=== PATIENT | female | born 1995 | race Caucasian/White ===

== ENCOUNTER 2016-07-12 18:35 | Emergency (ER) | payer MEDICAID ==
[2016-07-12 19:00] LABS: BASOPHIL % 0.3 % (0.0-0.4); Eosinophil % 1.3 % (0.00-5.0); Granulocytes % 61.4 % (36.0-66.0); Mean Cell Volume 88.7 fl (78-100); Mean Corpuscular Hemoglobin 29.2 pg (26-32); Mean Platelet Volume 10.3 fl (6-9.5); Platelet Count 305 K/mm3 (150-450); Red Blood Count 4.24 M/mm3 (4.1-5.4); Red Cell Distribution Width 13.4 % (11.5-14.0); White Blood Count 9.5 K/mm3 (4.0-10.5)
[2016-07-12 19:30] LABS: Collection Type CLEAN CATCH
[2016-07-12 19:31] LABS: Bacteria RARE /HPF (NEGATIVE); COMPLETE URINE MICROSCOPIC? YES; Epithelial Cells MODERATE /HPF (FEW); Ph 5.5 (5-6)
--- NOTE | 2016-07-12 19:32 | ERPHSYRPT ---
- History of Present Illness Time Seen by Provider: 07/12/16 19:29 Source: patient Exam Limitations: no limitations Patient Subjective Stated Complaint: abd cramping on friday. had a ' gush of clear fluid' in her underwear at 1630. denies abd cramping. denies diarrhea. deneis vag bleeding. last intercourse 2 weeks ago. denies pain with urination. last miscarriage in june 2015 Triage Nursing Assessment: see above. skin warm and dry. no discharge now. denies abd cramping, n/v/d Physician History: abd cramping on friday. had a 'gush of clear fluid' in her underwear at 1630. denies abd cramping. denies diarrhea. deneis vag bleeding. last intercourse 2 weeks ago. denies pain with urination. last miscarriage in june 2015, no fever, no chills, no abdominal pain, no nausea, Timing/Duration: today Pain Radiation: none Severity of Pain-Max: none Severity of Pain-Current: none Prior abdominal problems: none Sexual intercourse history: other (2 weeks ago) Allergies/Adverse Reactions: codeine Adverse Reaction (Verified 07/12/16 18:46) Home Medications: Vits W-Ca,Fe,FA(<1Mg) [] 1 each PO DAILY 07/12/16 [History] Hx Tetanus, Diphtheria Vaccination/Date Given: Yes Hx Influenza Vaccination/Date Given: No Hx Pneumococcal Vaccination/Date Given: No - Review of Systems Constitutional: No Fever, No Chills Eyes: No Symptoms Ears, Nose, & Throat: No Symptoms Respiratory: No Cough, No Dyspnea Cardiac: No Chest Pain, No Edema, No Syncope Abdominal/Gastrointestinal: No Abdominal Pain, No Nausea, No Vomiting, No Diarrhea Genitourinary Symptoms: , Vaginal Discharge, No Dysuria, No Frequency, No Hematuria, No Hesitancy, No Incontinence, No Menorrhagia, No Vaginal Bleeding , No Vaginal Itching Musculoskeletal: No Back Pain, No Neck Pain Skin: No Rash Neurological: No Dizziness, No Focal Weakness, No Sensory Changes Psychological: No Symptoms Endocrine: No Symptoms All Other Systems: Reviewed and Negative - Past Medical History Pertinent Past Medical History: Yes Neurological History: No Pertinent History ENT History: No Pertinent History Cardiac History: No Pertinent History Respiratory History: No Pertinent History Endocrine Medical History: No Pertinent History Musculoskeletal History: No Pertinent History GI Medical History: No Pertinent History Psycho-Social History: Anxiety, Depression Female Reproductive Disorders: No Pertinent History - Past Surgical History Past Surgical History: No Neuro Surgical History: No Pertinent History Cardiac: No Pertinent History Respiratory: No Pertinent History Gastrointestinal: No Pertinent History Genitourinary: No Pertinent History Musculoskeletal: No Pertinent History Female Surgical History: No Pertinent History - Social History Smoking Status: Never smoker Exposure to second hand smoke: No Drug Use: none Patient Lives Alone: No - Female History Hx Last Menstrual Period: 05/12 Hx Now: No Expected Date of Delivery: 03/05/17 - Nursing Vital Signs Nursing Vital Signs: Initial Vital Signs Temperature 98.8 F Temperature Source Oral Pulse Rate 100 Respiratory Rate 18 Blood Pressure [Right Arm] 134/69 Pain Intensity 0 - Physical Exam General Appearance: no apparent distress, alert Eye Exam: PERRL/EOMI, eyes nml inspection Ears, Nose, Throat Exam: normal ENT inspection, TMs normal, pharynx normal, moist mucous membranes Neck Exam: normal inspection, non-tender, supple, full range of motion Respiratory Exam: normal breath sounds, lungs clear, No respiratory distress Cardiovascular Exam: regular rate/rhythm, normal heart sounds, normal peripheral pulses Gastrointestinal/Abdomen Exam: soft, No tenderness, No mass Pelvic Exam: not done Back Exam: normal inspection, normal range of motion, No CVA tenderness, No vertebral tenderness Extremity Exam: normal inspection, normal range of motion, pelvis stable Neurologic Exam: alert, oriented x 3, cooperative, synchronizer II-XII nml as tested, normal mood/affect, sensation nml, No motor deficits Skin Exam: normal color, warm, dry Lymphatic Exam: No adenopathy SpO2: 100 Oxygen Delivery: Room Air - Course Nursing assessment & vital signs reviewed: Yes Ordered Tests: Active Orders 24 hr Category Date Time Status CBC W DIFF Stat Lab 07/12/16 19:01 Completed CMP Stat Lab 07/12/16 19:01 Completed HCG, Quantitative (Inhouse) Stat Lab 07/12/16 19:01 Completed UA W/ MICROSCOPIC Stat Lab 07/12/16 19:01 Completed Lab/Rad Data: Laboratory Result Diagrams 07/12/16 19:01 07/12/16 19:01 Laboratory Results 07/12/16 07/12/16 07/12/16 Range/Units 19:01 19:01 19:01 WBC 9.5 (4.0-10.5) K/mm3 RBC 4.24 (4.1-5.4) M/mm3 Hgb 12.4 (12.0-16.0) gm/dl Hct 37.6 (35-47) % MCV 88.7 (78-100) fl MCH 29.2 (26-32) pg MCHC 33.0 (32-36) g/dl RDW 13.4 (11.5-14.0) % Plt Count 305 (150-450) K/mm3 MPV 10.3 H (6-9.5) fl Gran % 61.4 (36.0-66.0) % Lymphocytes % 29.0 (24.0-44.0) % Monocytes % 8.0 (0.0-12.0) % Eosinophils % 1.3 (0.00-5.0) % Basophils % 0.3 (0.0-0.4) % Basophils # 0.03 (0-0.4) Sodium 141 (136-145) mEq/L Potassium 4.0 (3.5-5.1) mEq/L Chloride 103 (98-107) mEq/L Carbon Dioxide 23.6 (21-32) mEq/L Anion Gap 18.1 H (5-15) MEQ/L BUN 11 (9-20) mg/dL Creatinine 0.59 (0.55-1.30) mg/dl Estimated GFR > 60 ML/MIN Glucose 100 (70-110) MG/DL Calcium 9.2 (8.5-10.1) mg/dL Total Bilirubin 0.2 (0.2-1.0) mg/dL AST 11 L (15-37) U/L ALT 18 (12-78) U/L Alkaline Phosphatase 67 (46-116) U/L Serum Total Protein 7.9 (6.4-8.2) gm/dL Albumin 4.1 (3.4-5.0) g/dL Beta HCG, Quant 26627 H (0-6) IU/L Ur Collection Type CLEAN CATCH Urine Color YELLOW (YELLOW) Urine Appearance CLEAR (CLEAR) Urine pH 5.5 (5-6) Ur Specific [place] 1.015 (1.005-1.025) Urine Protein NEGATIVE (Negative) Urine Glucose (UA) NEGATIVE (NEGATIVE) mg/dL Urine Ketones NEGATIVE (NEGATIVE) Urine Nitrite NEGATIVE (NEGATIVE) Urine Bilirubin NEGATIVE (NEGATIVE) Urine Urobilinogen 0.2 (0-1) mg/dL Urine WBC (Auto) SMALL (NEGATIVE) Urine RBC (Auto) TRACE-INTACT (0-5) Luke/ul Urine Microscopic RBC 2-5 (0-2) /HPF Urine Microscopic WBC 2-5 (0-5) /HPF Ur Epithelial Cells MODERATE (FEW) /HPF Urine Bacteria RARE (NEGATIVE) /HPF Specimen Received 07/12/16 1900 - Progress Progress: improved Air Movement: good Blood Culture(s) Obtained: No Antibiotics given: No Counseled pt/family regarding: lab results, diagnosis, need for follow-up, smoking cessation - Departure Time of Disposition: 19:47 Departure Disposition: Home Clinical Impression: at early stage Condition: Stable Critical Care Time: No Referrals: NARESH LEMUS MD [Primary Care Provider] - Instructions: -- Discomforts and Remedies Additional Instructions: Please follow the instructions given to you. Please take your medication as prescribed if given. If symptoms recur or get worse, come back to the emergency room if you cannot reach your primary care physician, or call your primary care physician for an appointment. Again if your symptoms get worse, come back to the emergency room. Thanks for visiting emergency room, and let us take care of you.
[2016-07-12 19:42] LABS: ALBUMIN 4.1 g/dL (3.4-5.0); ALKALINE PHOSPHATASE 67 U/L (46-116); ANION GAP 18.1 MEQ/L (5-15); BILIRUBIN,TOTAL 0.2 mg/dL (0.2-1.0); BLOOD UREA NITROGEN 11 mg/dL (9-20); CHLORIDE 103 mEq/L (98-107); Carbon Dioxide 23.6 mEq/L (21-32); Glucose 100 MG/DL (70-110); HCG, Quantitative (Inhouse) 20335 IU/L (0-6); SGOT/AST 11 U/L (15-37); SGPT/ALT 18 U/L (12-78); SODIUM 141 mEq/L (136-145); Total Protein 7.9 gm/dL (6.4-8.2)
[2016-07-12 19:58] VITALS: BP 108/63; PULSE 88; O2SAT 99
== END 2016-07-12 20:00 | disposition home or self-care (01) ==
LOC: ED 18:35
DX: O09.219 Supervision of pregnancy with history of pre-term labor, unspecified trimester (principal)
CPT/HCPCS: 36415; 80053; 81000; 84702; 85025; 99284

== ENCOUNTER 2020-08-04 14:37 | Emergency (ER) | payer MEDICAID, OTHER ==
[2020-08-04] MEDS ORDERED: Sodium Chloride 0.9% 1000 ML 1,000 ML IV STA (15:02)
[2020-08-04 15:14] LABS: ALBUMIN 3.9 g/dL (3.5-5.0); ALKALINE PHOSPHATASE 82 U/L (38-126); ANION GAP 13.4 MEQ/L (5-15); BLOOD UREA NITROGEN 4 mg/dL (7-17); CHLORIDE 102 mmol/L (98-107); Calcium 9.1 mg/dL (8.4-10.2); Carbon Dioxide 23 mmol/L (22-30); Creatinine 1 0.44 mg/dL (0.52-1.04); EST GLOMERULAR FILTRATION RATE > 60.0 ML/MIN; Glucose 111 mg/dL (74-106); Potassium 3.3 mmol/L (3.5-5.1); SGOT/AST 17 U/L (14-36); SGPT/ALT 10 U/L (0-35); SODIUM 135 mmol/L (137-145); Total Protein 7.2 g/dL (6.3-8.2)
[2020-08-04 15:18] LABS: Amourphous Crystal FEW /HPF (NEGATIVE); Appearance SLIGHTLY CLOUDY (CLEAR); Bacteria FEW /HPF (NEGATIVE); Bilirubin NEGATIVE (NEGATIVE); Blood NEGATIVE Ery/ul (0-5); Epithelial Cells FEW /HPF (FEW); Glucose NEGATIVE (NEGATIVE); Ketones NEGATIVE (NEGATIVE); Leukocyte Esterase NEGATIVE (NEGATIVE); Nitrite NEGATIVE (NEGATIVE); Protein,Urine Dip 30 (Negative); Specific Gravity 1.011 (1.005-1.025); Urobilinogen NEGATIVE mg/dL (0-1); WBC 0-2 /HPF (0-5)
--- NOTE | 2020-08-04 15:18 | ERPHSYRPT ---
- History of Present Illness Time Seen by Provider: 08/04/20 14:58 Patient Subjective Stated Complaint: syncope Triage Nursing Assessment: pt to ED c/o syncopal epispode this afternoon. states she was sitting in her car and felt the aura she normally feels. reports hx syncopal episodes during previous . denies pain at this time, "I just feel a litte tired." A&Ox3. denies LOC. reports "I was sitting in the car and felt it coming so I looked at the clock. I lost my sight for a litte bit, ususally like 5 minutes but today it was 16 minutes." states this only happens when she is in sitting position. Physician History: Patient is a 25-year-old 3 para 2 Ab0 white female at 31 weeks gestation who presents after a syncopal episode while she was sitting in a car. She has had similar episodes of syncope in previous pregnancies this being her third epi sode seem that concerned her with this and was it seemed to last longer than most. She did complain of some brief period of shortness of breath from very tired and dizzy but feels back to normal at present. Witnessed: unwitnessed Prior Episodes: recent history Timing/Duration: resolved prior to arrival Precipitating Factors: unknown Context: sitting Loss of Consciousness: prolonged (minutes) Allergies/Adverse Reactions: codeine Adverse Reaction (Verified 08/04/20 14:41) Home Medications: Vits W-Ca,Fe,FA(<1Mg) [] 1 each PO DAILY 07/12/16 [History] Hx Tetanus, Diphtheria Vaccination/Date Given: Yes Hx Influenza Vaccination/Date Given: Yes Hx Pneumococcal Vaccination/Date Given: No Immunizations Up to Date: Yes Travel Risk - International Travel Have you traveled outside of the country in past 3 weeks: No - Coronavirus Screening Are you exhibiting any of the following symptoms?: No Close contact with a COVID-19 positive Pt in past 14-21 Days: No - Vaccine Status Have you recieved a Covid-19 vaccination: No - Past Medical History Pertinent Past Medical History: Yes Neurological History: No Pertinent History ENT History: No Pertinent History Cardiac History: No Pertinent History Respiratory History: No Pertinent History Endocrine Medical History: No Pertinent History Musculoskeletal History: No Pertinent History GI Medical History: No Pertinent History Psycho-Social History: Anxiety, Depression Female Reproductive Disorders: No Pertinent History - Past Surgical History Past Surgical History: Yes Neuro Surgical History: No Pertinent History Cardiac: No Pertinent History Respiratory: No Pertinent History Gastrointestinal: No Pertinent History Genitourinary: No Pertinent History Musculoskeletal: No Pertinent History Female Surgical History: Section Other Surgical History: C section - Social History Smoking Status: Never smoker Exposure to second hand smoke: No Drug Use: none Patient Lives Alone: No - Female History Hx Now: Yes Gestational Age: 31 weeks - Review of Systems Constitutional: No Fever, No Chills Eyes: No Symptoms Ears, Nose, & Throat: No Symptoms Respiratory: No Cough, No Dyspnea Cardiac: No Chest Pain, No Edema, No Syncope Abdominal/Gastrointestinal: No Abdominal Pain, No Nausea, No Vomiting, No Diarrhea Genitourinary Symptoms: No Dysuria Musculoskeletal: No Back Pain, No Neck Pain Skin: No Rash Neurological: Vertigo, No Dizziness, No Focal Weakness, No Sensory Changes Psychological: No Symptoms Endocrine: No Symptoms All Other Systems: Reviewed and Negative Physical Exam - Nursing Vital Signs Nursing Vital Signs: Initial Vital Signs Temperature 97.4 F 08/04/20 14:42 Pulse Rate 111 H 08/04/20 14:42 Respiratory Rate 18 08/04/20 14:42 Blood Pressure 142/78 08/04/20 14:42 O2 Sat by Pulse Oximetry 100 08/04/20 14:42 Pain Scale Pain Intensity 0 - Beverly Coma Scale Best Eye Response (Samantha): (4) open spontaneously Best Verbal Response (Samantha): (5) oriented Best Motor Response (Samantha): (6) obeys commands Beverly Total: 15 - Physical Exam Eye Exam: bilateral eye: PERRL, EOMI Ears, Nose, Throat Exam: normal ENT inspection, pharynx normal, moist mucous membranes Neck Exam: normal inspection, non-tender, supple, full range of motion Respiratory: normal breath sounds, lungs clear, No chest tenderness, No respiratory distress Cardiovascular: regular rate/rhythm, capillary refill <2 sec, No murmur, No pulse deficit Gastrointestinal: soft, normal bowel sounds, other (Gravid uterus heart tones positive positive movement) Pelvic Exam: deferred Rectal Exam: deferred Back Exam: normal inspection, normal range of motion, No CVA tenderness, No vertebral tenderness Extremity Exam: normal inspection, normal range of motion, pelvis stable, No tenderness Peripheral Pulses: carotid (R): 2+, carotid (L): 2+ Mental Status: alert, oriented x 3, cooperative mental hygienist Exam: normal speech, PERRL, No facial droop Coordination/Gait: normal finger to nose Motor/Sensory: no motor deficit, no sensory deficit, no pronator drift Skin Exam: normal color, warm, dry SpO2 Interpretation: normal SpO2: 100 O2 Delivery: Room Air - Course Nursing assessment & vital signs reviewed: Yes Ordered Tests: Active Orders 24 hr Category Date Time Status Industrial 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 Care 08/04/20 15:02 Active EKG-ER Only STAT Care 08/04/20 15:02 Active IV Insertion STAT Care 08/04/20 15:02 Active AMYLASE Stat Lab 08/04/20 15:03 Completed CBC W DIFF Stat Lab 08/04/20 15:02 Ordered CMP Stat Lab 08/04/20 15:02 Completed LIPASE Stat Lab 08/04/20 15:03 Completed Lactic Acid Stat Lab 08/04/20 15:03 Completed NT PRO BNP Stat Lab 08/04/20 15:03 Completed TROPONIN Q3H Lab 08/04/20 15:00 Completed TROPONIN Q3H Lab 08/04/20 18:15 Ordered TROPONIN Q3H Lab 08/04/20 21:15 Ordered TROPONIN Q3H Lab 08/05/20 00:15 Ordered TROPONIN Q3H Lab 08/05/20 03:15 Ordered UA W/RFX UR CULTURE Stat Lab 08/04/20 15:04 Completed Medication Summary Generic Name Dose Route Start Last Admin Trade Name Freq PRN Reason Stop Dose Admin Sodium Chloride 1,000 mls @ 999 mls/hr 08/04/20 15:02 08/04/20 15:23 Sodium Chloride 0.9% 1000 Ml IV 08/04/20 16:02 999 mls/hr .Q1H1M STA Administration Discontinued Medications Generic Name Dose Route Start Last Admin Trade Name Freq PRN Reason Stop Dose Admin Sodium Chloride Confirm 08/04/20 15:21 Sodium Chloride 0.9% 1000 Ml Administered 08/04/20 15:22 Dose 1,000 mls @ ud .ROUTE .STK-MED ONE Lab/Rad Data: Laboratory Result Diagrams 08/04/20 15:02 Laboratory Results 08/04/20 08/04/20 08/04/20 Range/Units 15:04 15:03 15:03 Sodium (137-145) mmol/L Potassium (3.5-5.1) mmol/L Chloride (98-107) mmol/L Carbon Dioxide (22-30) mmol/L Anion Gap (5-15) MEQ/L BUN (7-17) mg/dL Creatinine (0.52-1.04) mg/dL Estimated GFR ML/MIN Glucose (74-106) mg/dL Lactic Acid 1.7 (0.4-2.0) Calcium (8.4-10.2) mg/dL Total Bilirubin (0.2-1.3) mg/dL AST (14-36) U/L ALT (0-35) U/L Alkaline Phosphatase (38-126) U/L Troponin I (0.000-0.034) ng/mL NT-Pro-B Natriuret Pep 27.5 (0-450) pg/mL Serum Total Protein (6.3-8.2) g/dL Albumin (3.5-5.0) g/dL Amylase 42 (30-110) U/L Lipase 70 (23-300) U/L Urine Color YELLOW (YELLOW) Urine Appearance SLIGHTLY CLOUDY (CLEAR) Urine pH 8.0 (5-6) Ur Specific [place] 1.011 (1.005-1.025) Urine Protein 30 (Negative) Urine Ketones NEGATIVE (NEGATIVE) Urine Blood NEGATIVE (0-5) Luke/ul Urine Nitrite NEGATIVE (NEGATIVE) Urine Bilirubin NEGATIVE (NEGATIVE) Urine Urobilinogen NEGATIVE (0-1) mg/dL Ur Leukocyte Esterase NEGATIVE (NEGATIVE) Urine WBC (Auto) 0-2 (0-5) /HPF Urine RBC (Auto) NONE (0-2) /HPF U Epithel Cells (Auto) FEW (FEW) /HPF Urine Bacteria (Auto) FEW (NEGATIVE) /HPF Amorphous Crystals FEW (NEGATIVE) /HPF Urine Culture Reflexed NO (NO) Urine Glucose NEGATIVE (NEGATIVE) mg/dL 08/04/20 08/04/20 Range/Units 15:02 15:00 Sodium 135 L (137-145) mmol/L Potassium 3.3 L (3.5-5.1) mmol/L Chloride 102 (98-107) mmol/L Carbon Dioxide 23 (22-30) mmol/L Anion Gap 13.4 (5-15) MEQ/L BUN 4 L (7-17) mg/dL Creatinine 0.44 L (0.52-1.04) mg/dL Estimated GFR > 60.0 ML/MIN Glucose 111 H (74-106) mg/dL Lactic Acid (0.4-2.0) Calcium 9.1 (8.4-10.2) mg/dL Total Bilirubin 0.40 (0.2-1.3) mg/dL AST 17 (14-36) U/L ALT 10 (0-35) U/L Alkaline Phosphatase 82 (38-126) U/L Troponin I < 0.012 (0.000-0.034) ng/mL NT-Pro-B Natriuret Pep (0-450) pg/mL Serum Total Protein 7.2 (6.3-8.2) g/dL Albumin 3.9 (3.5-5.0) g/dL Amylase (30-110) U/L Lipase (23-300) U/L Urine Color (YELLOW) Urine Appearance (CLEAR) Urine pH (5-6) Ur Specific [place] (1.005-1.025) Urine Protein (Negative) Urine Ketones (NEGATIVE) Urine Blood (0-5) Luke/ul Urine Nitrite (NEGATIVE) Urine Bilirubin (NEGATIVE) Urine Urobilinogen (0-1) mg/dL Ur Leukocyte Esterase (NEGATIVE) Urine WBC (Auto) (0-5) /HPF Urine RBC (Auto) (0-2) /HPF U Epithel Cells (Auto) (FEW) /HPF Urine Bacteria (Auto) (NEGATIVE) /HPF Amorphous Crystals (NEGATIVE) /HPF Urine Culture Reflexed (NO) Urine Glucose (NEGATIVE) mg/dL - Progress Progress: improved - Departure Departure Disposition: Home Clinical Impression: at early stage, Syncope Condition: Stable Critical Care Time: No Referrals: NARESH LEMUS MD [Primary Care Provider] - Instructions: Syncope (Fainting) (DC)
[2020-08-04] MEDS ORDERED: Sodium Chloride 0.9% 1000 ML 1,000 ML ONE (15:21)
[2020-08-04 15:23] LABS: NT PRO BNP 27.5 pg/mL (0-450)
[2020-08-04 16:08] VITALS: BP 120/63; PULSE 110; O2SAT 99
[2020-08-04 16:44] LABS: Hematocrit 34.8 % (35-47); Mean Cell Volume 90.9 fl (78-100); Mean Corpuscular Hemoglobin 28.7 pg (26-32); Mean Corpuscular Hgb Concent. 31.6 g/dl (32-36); Mean Platelet Volume 11.7 fl (7.5-11.0); Platelet Count 216 K/mm3 (150-450); Red Blood Count 3.83 M/mm3 (4.1-5.4); Red Cell Distribution Width 12.9 % (11.5-14.0); White Blood Count 10.6 K/mm3 (4.0-10.5)
[2020-08-04 18:03] LABS: BAND 5 % (0.0-2.0); Lymphocytes 13 % (24-44); Monocyte 4 % (0.0-12.0); Neutrophils 78 % (36.0-66.0); Total Cells Counted 100
[2020-08-04 18:05] LABS: Platelet Estimate NORMAL (NORMAL)
== END 2020-08-04 16:14 | disposition home or self-care (01) ==
LOC: ED 14:37
DX: O26.893 Other specified pregnancy related conditions, third trimester (principal); Z3A.31 31 weeks gestation of pregnancy
CPT/HCPCS: 36000; 36415; 80053; 81001; 82150; 83605; 83690; 83880; 84484; 85025; 93005; 93041; 96360; 99284

== ENCOUNTER 2021-12-30 14:04 | Emergency (ER) | payer OTHER, BC ==
[2021-12-30] MEDS ORDERED: Sodium Chloride 0.9% 1000 ML 1,000 ML IV STA (14:09)
[2021-12-30 14:15] VITALS: O2SAT 100
[2021-12-30] MEDS ORDERED: Sodium Chloride 0.9% 1000 ML 1,000 ML ONE (14:23)
[2021-12-30 14:26] LABS: Absolute Neutrophil Ct (ANC) 5.58 x10^3/uL (1.4-6.9); Basophil (Absolute #) 0.03 x10^3/uL (0-0.4); Eosinophil % 0.8 % (0.00-5.0); Eosinophil (Absolute #) 0.06 x10^3/uL (0-0.5); Hematocrit 33.3 % (35-47); Hemoglobin 10.4 g/dL (12.0-16.0); Lymphocyte (Absolute #) 1.49 x10^3/uL (1.0-4.6); Lymphocytes % 19.1 % (24.0-44.0); Mean Cell Volume 81.2 fL (78-100); Mean Corpuscular Hemoglobin 25.4 pg (26-32); Mean Corpuscular Hgb Concent. 31.2 g/dL (32-36); Mean Platelet Volume 11.1 fL (7.5-11.0); Monocytes % 7.7 % (0.0-12.0); Neutrophil % 71.6 % (36.0-66.0); Platelet Count 260 x10^3/uL (150-450); Red Cell Distribution Width 15.3 % (11.5-14.0); White Blood Count 7.8 x10^3/uL (4.0-10.5)
[2021-12-30 14:32] LABS: Appearance CLOUDY (CLEAR); Glucose NEGATIVE (NEGATIVE)
[2021-12-30 14:33] LABS: Bilirubin SMALL (NEGATIVE); Dipstick done @ ? MAIN LAB; Ketones MODERATE-40 (NEGATIVE); Nitrite NEGATIVE (NEGATIVE); Protein,Urine Dip NEGATIVE (Negative); RBC NEGATIVE Ery/ul (0-5); Urobilinogen >=8.0 mg/dL (0-1)
[2021-12-30 14:38] LABS: Epithelial Cells FEW /HPF (FEW); Mucus MODERATE /HPF (NEGATIVE)
[2021-12-30 14:49] LABS: Urine Cultured Indicated? YES
[2021-12-30 14:50] LABS: ALBUMIN 4.2 g/dL (3.5-5.0); ALKALINE PHOSPHATASE 67 U/L (38-126); ANION GAP 9.8 MEQ/L (5-15); BLOOD UREA NITROGEN 3 mg/dL (7-17); CHLORIDE 104 mmol/L (98-107); Calcium 8.8 mg/dL (8.4-10.2); Carbon Dioxide 26 mmol/L (22-30); Creatinine 1 0.37 mg/dL (0.52-1.04); EST GLOMERULAR FILTRATION RATE > 60.0 ML/MIN; Glucose 85 mg/dL (74-106); Potassium 4.2 mmol/L (3.5-5.1); SGOT/AST 23 U/L (14-36); SGPT/ALT 26 U/L (0-35); SODIUM 135 mmol/L (137-145); Total Protein 7.4 g/dL (6.3-8.2)
[2021-12-30 15:24] LABS: INFLUENZA A NEGATIVE (NEGATIVE); INFLUENZA B NEGATIVE (NEGATIVE); RESPIRATORY SYNCTIAL VIRUS NEGATIVE (Negative); SARS-CoV-2 Xpert Express NEGATIVE (NEGATIVE)
[2021-12-30] MEDS ORDERED: ROCEPHIN 2 Gm-D5w 50ML BAG** 2 G/50 ML IVPB IV STA (16:03)
[2021-12-30 16:04] VITALS: BP 96/66
[2021-12-30] MEDS ORDERED: ROCEPHIN 2 Gm-D5w 50ML BAG** 2 G/50 ML IVPB IV ONE (16:21)
[2021-12-30 16:28] VITALS: PULSE 90
--- NOTE | 2021-12-30 16:28 | ERPHSYRPT ---
- History of Present Illness Time Seen by Provider: 12/30/21 14:07 Source: patient Exam Limitations: no limitations Patient Subjective Stated Complaint: C/O bouts of dizziness and "just not feeling right" since yesterday. Patient states she is pregnany, just saw her OB MD on (Dr. Lemus). Patient states she was fine at that time. Triage Nursing Assessment: Patient ambulated back to ED without difficulties or SOB. Patient is alert and oriented and answering questions appropriately. KEYSHAWN PRADO. Physician History: 26 years old 5 para 3 at 17 weeks gestation presented in the ER with chief complaint of feeling dizzy lightheaded off and on since yesterday with pelvic cramping at times as well. Patient reports she gets dizzy and lightheaded with standing and earlier she had a brief near syncopal episode. She is also having mild headache and generalized feeling of unwellness. Denies any sick contact. No chest pain palpitations or shortness of breath. No cough fever or chills reported. Feels weak fatigued and tired. Gets worse with activity. Better with resting. Denies any vaginal bleeding or discharge. Patient reports yesterday she was having cramping which lasted for good 30 minutes and improved. Does not report having any cramping today. Timing/Duration: yesterday, intermittent, gradual onset Quality: cramping Onset Location: pelvic pain Pain Radiation: none Severity of Pain-Max: mild Severity of Pain-Current: none Prior abdominal problems: none Sexual intercourse history: non-contributory Modifying Factors: Improves With: nothing Associated Symptoms: , No abdominal pain, No fever, No polyuria, No lower back pain, No vaginal discharge, No vaginal fluid leakage Allergies/Adverse Reactions: codeine Adverse Reaction (Verified 12/30/21 14:05) Home Medications: Vits W-Ca,Fe,FA(<1Mg) [] 1 each PO DAILY 07/12/16 [History] Sertraline HCl 50 mg [Zoloft 50 mg Tablet] 1 tab PO DAILY 12/30/21 [History] Hx Tetanus, Diphtheria Vaccination/Date Given: Yes Hx Influenza Vaccination/Date Given: No Hx Pneumococcal Vaccination/Date Given: No Travel Risk - International Travel Have you traveled outside of the country in past 3 weeks: No - Coronavirus Screening Are you exhibiting any of the following symptoms?: Yes Symptoms: Shortness of Breath, Vomiting/Diarrhea, Headaches/Body Aches/Fatigue Close contact with a COVID-19 positive Pt in past 14-21 Days: No - Vaccine Status Have you recieved a Covid-19 vaccination: No - Review of Systems Constitutional: Fatigue, Weakness Eyes: No Symptoms Ears, Nose, & Throat: No Symptoms Respiratory: No Symptoms Cardiac: No Symptoms Abdominal/Gastrointestinal: No Symptoms Genitourinary Symptoms: No Symptoms Musculoskeletal: No Symptoms Skin: No Symptoms Neurological: Dizziness, Headache Psychological: No Symptoms Endocrine: No Symptoms Hematologic/Lymphatic: No Symptoms Immunological/Allergic: No Symptoms - Past Medical History Pertinent Past Medical History: Yes Neurological History: No Pertinent History ENT History: No Pertinent History Cardiac History: No Pertinent History Respiratory History: No Pertinent History Endocrine Medical History: No Pertinent History Musculoskeletal History: No Pertinent History GI Medical History: No Pertinent History History: No Pertinent History Psycho-Social History: Anxiety, Depression Female Reproductive Disorders: No Pertinent History - Past Surgical History Past Surgical History: Yes Neuro Surgical History: No Pertinent History Cardiac: No Pertinent History Respiratory: No Pertinent History Gastrointestinal: No Pertinent History Genitourinary: No Pertinent History Musculoskeletal: No Pertinent History Female Surgical History: Section Other Surgical History: C section - Social History Smoking Status: Never smoker Exposure to second hand smoke: No Drug Use: none Patient Lives Alone: No - Female History Hx Last Menstrual Period: August 28, 2021 Hx Now: Yes Expected Date of Delivery: 06/04/22 Gestational Age: 17 weeks - Nursing Vital Signs Nursing Vital Signs: Initial Vital Signs Temperature 98.7 F 12/30/21 14:07 Pulse Rate 101 H 12/30/21 14:07 Respiratory Rate 18 12/30/21 14:07 Blood Pressure 115/79 12/30/21 14:07 O2 Sat by Pulse Oximetry 100 12/30/21 14:07 Pain Scale Pain Intensity 0 - Physical Exam General Appearance: no apparent distress, alert Eye Exam: PERRL/EOMI Ears, Nose, Throat Exam: normal ENT inspection, TMs normal, pharynx normal, moist mucous membranes Neck Exam: normal inspection, non-tender, supple, full range of motion, Kernig's Respiratory Exam: normal breath sounds, lungs clear Cardiovascular Exam: regular rate/rhythm, normal heart sounds Gastrointestinal/Abdomen Exam: soft, normal bowel sounds, No tenderness Back Exam: normal inspection, normal range of motion, No CVA tenderness Extremity Exam: normal inspection, normal range of motion, pelvis stable Neurologic Exam: alert, oriented x 3, cooperative, 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-XII nml as tested, normal mood/affect, nml cerebellar function, nml station & gait, sensation nml, No motor deficits Skin Exam: normal color SpO2 Interpretation: normal SpO2: 100 O2 Delivery: Room Air - Course EKG Interpreted by Me: RATE ([id number]), Sinus Rhythm, NORMAL AXIS, NORMAL INTERVALS, Non-specific ST Changes Ordered Tests: Active Orders 24 hr Category Date Time Status EKG-ER Only STAT Care 12/30/21 14:39 Completed IV Insertion STAT Care 12/30/21 14:09 Completed Orthostatic Vital Signs STAT Care 12/30/21 14:10 Completed CBC W DIFF Stat Lab 12/30/21 14:20 Completed CMP Stat Lab 12/30/21 14:20 Completed CULTURE,URINE Stat Lab 12/30/21 14:15 Received TROPONIN Q4H Lab 12/30/21 14:45 Completed UA W/RFX CULTURE Stat Lab 12/30/21 14:15 Completed Medication Summary Discontinued Medications Generic Name Dose Route Start Last Admin Trade Name Freq PRN Reason Stop Dose Admin Sodium Chloride 1,000 mls @ 999 mls/hr 12/30/21 14:09 12/30/21 15:37 Sodium Chloride 0.9% 1000 Ml IV 12/30/21 15:09 Infused .Q1H1M STA Infusion Sodium Chloride Confirm 12/30/21 14:23 Sodium Chloride 0.9% 1000 Ml Administered 12/30/21 14:24 Dose 1,000 mls @ ud .ROUTE .STK-MED ONE Ceftriaxone Sodium/Dextrose 2 g in 50 mls @ 100 mls/hr 12/30/21 16:03 12/30/21 16:54 Rocephin 2 Gm-D5w 50ml Bag IV 12/30/21 16:32 Infused STAT STA Infusion Ceftriaxone Sodium/Dextrose Confirm 12/30/21 16:21 Rocephin 2 Gm-D5w 50ml Bag Administered 12/30/21 16:22 Dose 2 g in 50 mls @ ud IV .STK-MED ONE Lab/Rad Data: Laboratory Result Diagrams 12/30/21 14:20 12/30/21 14:20 Laboratory Results 12/30/21 12/30/21 12/30/21 Range/Units 15:00 14:45 14:20 WBC (4.0-10.5) x10^3/uL RBC (4.1-5.4) x10^6/uL Hgb (12.0-16.0) g/dL Hct (35-47) % MCV (78-100) fL MCH (26-32) pg MCHC (32-36) g/dL RDW (11.5-14.0) % Plt Count (150-450) x10^3/uL MPV (7.5-11.0) fL Gran % (36.0-66.0) % Immature Gran % (Auto) (0.00-0.4) % Nucleat RBC Rel Count (0.00-0.1) % Eos # (Auto) (0-0.5) x10^3/uL Immature Gran # (Auto) (0.00-0.03) x10^3u/L Absolute Lymphs (auto) (1.0-4.6) x10^3/uL Absolute Monos (auto) (0.0-1.3) x10^3/uL Absolute Nucleated RBC (0.00-0.01) x10^3u/L Lymphocytes % (24.0-44.0) % Monocytes % (0.0-12.0) % Eosinophils % (0.00-5.0) % Basophils % (0.0-0.4) % Absolute Granulocytes (1.4-6.9) x10^3/uL Basophils # (0-0.4) x10^3/uL Sodium 135 L (137-145) mmol/L Potassium 4.2 (3.5-5.1) mmol/L Chloride 104 (98-107) mmol/L Carbon Dioxide 26 (22-30) mmol/L Anion Gap 9.8 (5-15) MEQ/L BUN 3 L (7-17) mg/dL Creatinine 0.37 L (0.52-1.04) mg/dL Estimated GFR > 60.0 ML/MIN Glucose 85 (74-106) mg/dL Calcium 8.8 (8.4-10.2) mg/dL Total Bilirubin 0.40 (0.2-1.3) mg/dL AST 23 (14-36) U/L ALT 26 (0-35) U/L Alkaline Phosphatase 67 (38-126) U/L Troponin I < 0.012 (0.000-0.034) ng/mL Serum Total Protein 7.4 (6.3-8.2) g/dL Albumin 4.2 (3.5-5.0) g/dL Urinalys Dipstick Clnc Urine Color (YELLOW) Urine Appearance (CLEAR) Urine pH (5-6) Ur Specific [place] (1.005-1.025) POC Urine Protein Conf (Negative) Urine Ketones (NEGATIVE) Urine Nitrite (NEGATIVE) Urine Bilirubin (NEGATIVE) Urine Urobilinogen (0-1) mg/dL Urine Leukocytes (NEGATIVE) Urine WBC (Auto) (0-5) /HPF Urine RBC (Auto) (0-2) /HPF U Epithel Cells (Auto) (FEW) /HPF Urine Bacteria (Auto) (NEGATIVE) /HPF Urine RBC (0-5) Luke/ul Urine Mucus (Auto) (NEGATIVE) /HPF Ur Culture Indicated? Urine Glucose (NEGATIVE) mg/dL Influenza Type A Ag NEGATIVE (NEGATIVE) Influenza Type B Ag NEGATIVE (NEGATIVE) RSV (PCR) NEGATIVE (Negative) SARS-CoV-2 (PCR) NEGATIVE (NEGATIVE) 12/30/21 12/30/21 Range/Units 14:20 14:15 WBC 7.8 (4.0-10.5) x10^3/uL RBC 4.10 (4.1-5.4) x10^6/uL Hgb 10.4 L (12.0-16.0) g/dL Hct 33.3 L (35-47) % MCV 81.2 (78-100) fL MCH 25.4 L (26-32) pg MCHC 31.2 L (32-36) g/dL RDW 15.3 H (11.5-14.0) % Plt Count 260 (150-450) x10^3/uL MPV 11.1 H (7.5-11.0) fL Gran % 71.6 H (36.0-66.0) % Immature Gran % (Auto) 0.4 (0.00-0.4) % Nucleat RBC Rel Count 0.0 (0.00-0.1) % Eos # (Auto) 0.06 (0-0.5) x10^3/uL Immature Gran # (Auto) 0.03 (0.00-0.03) x10^3u/L Absolute Lymphs (auto) 1.49 (1.0-4.6) x10^3/uL Absolute Monos (auto) 0.60 (0.0-1.3) x10^3/uL Absolute Nucleated RBC 0.00 (0.00-0.01) x10^3u/L Lymphocytes % 19.1 L (24.0-44.0) % Monocytes % 7.7 (0.0-12.0) % Eosinophils % 0.8 (0.00-5.0) % Basophils % 0.4 (0.0-0.4) % Absolute Granulocytes 5.58 (1.4-6.9) x10^3/uL Basophils # 0.03 (0-0.4) x10^3/uL Sodium (137-145) mmol/L Potassium (3.5-5.1) mmol/L Chloride (98-107) mmol/L Carbon Dioxide (22-30) mmol/L Anion Gap (5-15) MEQ/L BUN (7-17) mg/dL Creatinine (0.52-1.04) mg/dL Estimated GFR ML/MIN Glucose (74-106) mg/dL Calcium (8.4-10.2) mg/dL Total Bilirubin (0.2-1.3) mg/dL AST (14-36) U/L ALT (0-35) U/L Alkaline Phosphatase (38-126) U/L Troponin I (0.000-0.034) ng/mL Serum Total Protein (6.3-8.2) g/dL Albumin (3.5-5.0) g/dL Urinalys Dipstick Clnc MAIN LAB Urine Color YELLOW (YELLOW) Urine Appearance CLOUDY (CLEAR) Urine pH 7.0 (5-6) Ur Specific [place] 1.020 (1.005-1.025) POC Urine Protein Conf NEGATIVE (Negative) Urine Ketones MODERATE-40 (NEGATIVE) Urine Nitrite NEGATIVE (NEGATIVE) Urine Bilirubin SMALL (NEGATIVE) Urine Urobilinogen >=8.0 (0-1) mg/dL Urine Leukocytes LARGE (NEGATIVE) Urine WBC (Auto) 16-25 (0-5) /HPF Urine RBC (Auto) 3-5 (0-2) /HPF U Epithel Cells (Auto) FEW (FEW) /HPF Urine Bacteria (Auto) NONE (NEGATIVE) /HPF Urine RBC NEGATIVE (0-5) Luke/ul Urine Mucus (Auto) MODERATE (NEGATIVE) /HPF Ur Culture Indicated? YES Urine Glucose NEGATIVE (NEGATIVE) mg/dL Influenza Type A Ag (NEGATIVE) Influenza Type B Ag (NEGATIVE) RSV (PCR) (Negative) SARS-CoV-2 (PCR) (NEGATIVE) - Progress Progress: improved Air Movement: good Progress Note: 12/30/21 16:25 She is given fluid bolus and feeling much better on reevaluation. She has negative orthostatics, nonfocal neuro exam throughout stay in the ER. EKG normal sinus rhythm with no arrhythmia/ischemic changes and negative troponin. Baseline work-up grossly unremarkable except for some element of UTI and given a dose of Rocephin in here and will continue with Keflex to go home. She also seems little dehydrated and better after fluids. I have OB come down and monitor her for any contractions and was negative for 30 minutes. She has a heart tone of 140s. recommended increase hydration and outpatient OB follow-up early next week. Discussed signs symptoms of worsening needing return to ER which she seems understanding. Stable for discharge Blood Culture(s) Obtained: No Antibiotics given: Yes Counseled pt/family regarding: lab results, diagnosis, need for follow-up - Departure Departure Disposition: Home Clinical Impression: UTI in , antepartum, Cramping affecting , antepartum, Dehydration during Condition: Stable Critical Care Time: No Referrals: NARESH LEMUS MD [Primary Care Provider] - Follow up/PCP as directed (Tomorrow for appointment for reevaluation) Instructions: Taking in Enough Fluids While You Are , Urinary Tract I nfections in Additional Instructions: Drink plenty of fluids. Take Tylenol as needed. Pelvic rest. Avoid exertional activities. Follow-up with your OB for reevaluation early next week. Return to ER for worsening generalized weakness, lightheadedness, pelvic cramping or if having vaginal bleeding discharge etc. Prescriptions: Cephalexin Mh 500 mg [Keflex 500 mg] 500 mg PO TID #21 cap
== END 2021-12-30 17:34 | disposition home or self-care (01) ==
LOC: ED 14:04
DX: O23.42 Unspecified infection of urinary tract in pregnancy, second trimester (principal); N39.0 Urinary tract infection, site not specified; Z3A.17 17 weeks gestation of pregnancy; O26.892 Other specified pregnancy related conditions, second trimester; R10.9 Unspecified abdominal pain; E86.0 Dehydration; R42 Dizziness and giddiness; Z79.899 Other long term (current) drug therapy; Z28.310 Unvaccinated for COVID-19
CPT/HCPCS: 0241U; 36000; 36415; 80053; 81015; 84484; 85025; 87086; 93005; 96360; 99284; 96365; J0696

== ENCOUNTER 2022-03-20 01:34 | Emergency (ER) | payer BC, OTHER ==
--- NOTE | 2022-03-20 02:11 | ERPHSYRPT ---
- History of Present Illness Time Seen by Provider: 03/20/22 02:09 Source: patient Exam Limitations: no limitations Physician History: 26-year-old female M1 currently 29 weeks presents to our ED for evaluation of dehydration vomiting nausea and diarrhea. symptoms have been ongoing for 2 days. Patient states she cannot hold anything down and she feels very thirsty. No fever. No active pain. Symptoms are mild to moderate in intensity. No specific worsening improving factors. Patient that she is otherwise healthy. She is got no significant past medical history. Patient voices no other complaints or concerns at this time. Portions of this note were created with voice recognition technology. There may be grammatical, spelling, punctuation or sound alike errors Timing/Duration: today Severity: moderate Modifying Factors: Improves With: nothing Associated Symptoms: denies symptoms Allergies/Adverse Reactions: codeine Adverse Reaction (Verified 12/30/21 14:05) Home Medications: Vits W-Ca,Fe,FA(<1Mg) [] 1 each PO DAILY 07/12/16 [History] Hx Tetanus, Diphtheria Vaccination/Date Given: Yes Hx Influenza Vaccination/Date Given: No Hx Pneumococcal Vaccination/Date Given: No Travel Risk - Vaccine Status Have you recieved a Covid-19 vaccination: No - Review of Systems Constitutional: No Symptoms, No Fever, No Chills Eyes: No Symptoms Ears, Nose, & Throat: No Symptoms Respiratory: No Symptoms, No Cough, No Dyspnea Cardiac: No Symptoms, No Chest Pain, No Edema, No Syncope Abdominal/Gastrointestinal: No Symptoms, No Abdominal Pain, No Nausea, No Vomiting, No Diarrhea Genitourinary Symptoms: No Symptoms, No Dysuria Musculoskeletal: No Symptoms, No Back Pain, No Neck Pain Skin: No Symptoms, No Rash Neurological: No Symptoms, No Dizziness, No Focal Weakness, No Sensory Changes Psychological: No Symptoms Endocrine: No Symptoms Hematologic/Lymphatic: No Symptoms Immunological/Allergic: No Symptoms All Other Systems: Reviewed and Negative - Past Medical History Pertinent Past Medical History: Yes Neurological History: No Pertinent History ENT History: No Pertinent History Cardiac History: No Pertinent History Respiratory History: No Pertinent History Endocrine Medical History: No Pertinent History Musculoskeletal History: No Pertinent History GI Medical History: No Pertinent History History: No Pertinent History Psycho-Social History: Anxiety, Depression Female Reproductive Disorders: No Pertinent History - Past Surgical History Past Surgical History: Yes Neuro Surgical History: No Pertinent History Cardiac: No Pertinent History Respiratory: No Pertinent History Gastrointestinal: No Pertinent History Genitourinary: No Pertinent History Musculoskeletal: No Pertinent History Female Surgical History: Section Other Surgical History: C section - Social History Smoking Status: Never smoker Exposure to second hand smoke: No Drug Use: none Patient Lives Alone: No - Nursing Vital Signs Nursing Vital Signs: Initial Vital Signs Temperature 97.6 F 03/20/22 01:57 Pulse Rate 104 H 03/20/22 01:57 Respiratory Rate 18 03/20/22 01:57 Blood Pressure 136/80 03/20/22 01:57 O2 Sat by Pulse Oximetry 98 03/20/22 01:57 Pain Scale Pain Intensity 4 - Physical Exam General Appearance: no apparent distress, alert Eye Exam: PERRL/EOMI, eyes nml inspection Ears, Nose, Throat Exam: normal ENT inspection, TMs normal, pharynx normal, moist mucous membranes Neck Exam: normal inspection, non-tender, supple, full range of motion Respiratory Exam: normal breath sounds, lungs clear, airway intact, No respi ratory distress Cardiovascular Exam: regular rate/rhythm, normal heart sounds, normal peripheral pulses Gastrointestinal/Abdomen Exam: soft, normal bowel sounds, other (Mild diffuse abdominal pain which patient attributes to recurrent vomiting. No focal pain or tenderness), No tenderness, No mass Back Exam: normal inspection, normal range of motion, No CVA tenderness, No vertebral tenderness Extremity Exam: normal inspection, normal range of motion, pelvis stable Neurologic Exam: alert, oriented x 3, cooperative, normal mood/affect, nml cerebellar function, nml station & gait, sensation nml, No motor deficits Skin Exam: normal color, warm, dry, No rash Lymphatic Exam: No adenopathy SpO2 Interpretation: normal SpO2: 98 O2 Delivery: Room Air - Course Nursing assessment & vital signs reviewed: Yes Ordered Tests: Active Orders 24 hr Category Date Time Status IV Insertion STAT Care 03/20/22 02:29 Active CBC W DIFF Stat Lab 03/20/22 02:40 Completed CMP Stat Lab 03/20/22 02:40 Completed LIPASE Stat Lab 03/20/22 02:40 Completed UA W/RFX CULTURE Stat Lab 03/20/22 02:46 Completed Medication Summary Discontinued Medications Generic Name Dose Route Start Last Admin Trade Name Freq PRN Reason Stop Dose Admin Acetaminophen 975 mg 03/20/22 02:30 03/20/22 02:36 Acetaminophen 325 Mg Tablet PO 03/20/22 02:31 975 mg STAT ONE Administration Acetaminophen Confirm 03/20/22 02:36 Acetaminophen 325 Mg Tablet Administered 03/20/22 02:37 Dose 975 mg .ROUTE .STK-MED ONE Sodium Chloride 1,000 mls @ 999 mls/hr 03/20/22 02:29 03/20/22 02:37 Sodium Chloride 0.9% 1000 Ml IV 03/20/22 03:29 999 mls/hr .Q1H1M STA Administration Sodium Chloride Confirm 03/20/22 02:36 Sodium Chloride 0.9% 1000 Ml Administered 03/20/22 02:37 Dose 1,000 mls @ ud .ROUTE .STK-MED ONE Ondansetron HCl 4 mg 03/20/22 02:30 03/20/22 02:36 Ondansetron Hcl 4 Mg/2 Ml Vial IV 03/20/22 02:31 4 mg STAT ONE Administration Ondansetron HCl Confirm 03/20/22 02:35 Ondansetron Hcl 4 Mg/2 Ml Vial Administered 03/20/22 02:36 Dose 4 mg .ROUTE .STK-MED ONE Lab/Rad Data: Laboratory Result Diagrams 03/20/22 02:40 03/20/22 02:40 Laboratory Results 03/20/22 03/20/22 03/20/22 Range/Units 02:46 02:40 02:40 WBC (4.0-10.5) x10^3/uL RBC (4.1-5.4) x10^6/uL Hgb (12.0-16.0) g/dL Hct (35-47) % MCV (78-100) fL MCH (26-32) pg MCHC (32-36) g/dL RDW (11.5-14.0) % Plt Count (150-450) x10^3/uL MPV (7.5-11.0) fL Gran % (36.0-66.0) % Immature Gran % (Auto) (0.00-0.4) % Nucleat RBC Rel Count (0.00-0.1) % Eos # (Auto) (0-0.5) x10^3/uL Immature Gran # (Auto) (0.00-0.03) x10^3u/L Absolute Lymphs (auto) (1.0-4.6) x10^3/uL Absolute Monos (auto) (0.0-1.3) x10^3/uL Absolute Nucleated RBC (0.00-0.01) x10^3u/L Lymphocytes % (24.0-44.0) % Monocytes % (0.0-12.0) % Eosinophils % (0.00-5.0) % Basophils % (0.0-0.4) % Absolute Granulocytes (1.4-6.9) x10^3/uL Basophils # (0-0.4) x10^3/uL Sodium 135 L (137-145) mmol/L Potassium 3.4 L (3.5-5.1) mmol/L Chloride 105 (98-107) mmol/L Carbon Dioxide 19 L (22-30) mmol/L Anion Gap 14.7 (5-15) MEQ/L BUN 5 L (7-17) mg/dL Creatinine 0.38 L (0.52-1.04) mg/dL Estimated GFR > 60.0 ML/MIN Glucose 108 H (74-106) mg/dL Calcium 8.5 (8.4-10.2) mg/dL Total Bilirubin 0.70 (0.2-1.3) mg/dL AST 15 (14-36) U/L ALT 12 (0-35) U/L Alkaline Phosphatase 115 (38-126) U/L Serum Total Protein 7.7 (6.3-8.2) g/dL Albumin 3.9 (3.5-5.0) g/dL Lipase 35 (23-300) U/L Urinalys Dipstick Clnc MAIN LAB Urine Color YELLOW (YELLOW) Urine Appearance CLEAR (CLEAR) Urine pH 5.5 (5-6) Ur Specific [place] >=1.030 A (1.005-1.025) POC Urine Protein Conf 30 A (Negative) Urine Ketones >=160 A (NEGATIVE) Urine Nitrite NEGATIVE (NEGATIVE) Urine Bilirubin SMALL A (NEGATIVE) Urine Urobilinogen 0.2 (0-1) mg/dL Urine Leukocytes NEGATIVE (NEGATIVE) Urine WBC (Auto) 0-2 (0-5) /HPF Urine RBC (Auto) NONE (0-2) /HPF U Epithel Cells (Auto) RARE (FEW) /HPF Urine Bacteria (Auto) RARE (NEGATIVE) /HPF Urine RBC NEGATIVE (0-5) Luke/ul Urine Mucus (Auto) SLIGHT A (NEGATIVE) /HPF Ur Culture Indicated? NO Urine Glucose NEGATIVE (NEGATIVE) mg/dL Influenza Type A Ag NEGATIVE (NEGATIVE) Influenza Type B Ag NEGATIVE (NEGATIVE) RSV (PCR) NEGATIVE (Negative) SARS-CoV-2 (PCR) NEGATIVE (NEGATIVE) 03/20/22 Range/Units 02:40 WBC 11.0 H (4.0-10.5) x10^3/uL RBC 4.17 (4.1-5.4) x10^6/uL Hgb 10.9 L (12.0-16.0) g/dL Hct 34.7 L (35-47) % MCV 83.2 (78-100) fL MCH 26.1 (26-32) pg MCHC 31.4 L (32-36) g/dL RDW 14.5 H (11.5-14.0) % Plt Count 231 (150-450) x10^3/uL MPV 11.5 H (7.5-11.0) fL Gran % 89.3 H (36.0-66.0) % Immature Gran % (Auto) 1.1 H (0.00-0.4) % Nucleat RBC Rel Count 0.0 (0.00-0.1) % Eos # (Auto) 0.02 (0-0.5) x10^3/uL Immature Gran # (Auto) 0.12 H (0.00-0.03) x10^3u/L Absolute Lymphs (auto) 0.62 L (1.0-4.6) x10^3/uL Absolute Monos (auto) 0.38 (0.0-1.3) x10^3/uL Absolute Nucleated RBC 0.00 (0.00-0.01) x10^3u/L Lymphocytes % 5.6 L (24.0-44.0) % Monocytes % 3.5 (0.0-12.0) % Eosinophils % 0.2 (0.00-5.0) % Basophils % 0.3 (0.0-0.4) % Absolute Granulocytes 9.81 H (1.4-6.9) x10^3/uL Basophils # 0.03 (0-0.4) x10^3/uL Sodium (137-145) mmol/L Potassium (3.5-5.1) mmol/L Chloride (98-107) mmol/L Carbon Dioxide (22-30) mmol/L Anion Gap (5-15) MEQ/L BUN (7-17) mg/dL Creatinine (0.52-1.04) mg/dL Estimated GFR ML/MIN Glucose (74-106) mg/dL Calcium (8.4-10.2) mg/dL Total Bilirubin (0.2-1.3) mg/dL AST (14-36) U/L ALT (0-35) U/L Alkaline Phosphatase (38-126) U/L Serum Total Protein (6.3-8.2) g/dL Albumin (3.5-5.0) g/dL Lipase (23-300) U/L Urinalys Dipstick Clnc Urine Color (YELLOW) Urine Appearance (CLEAR) Urine pH (5-6) Ur Specific [place] (1.005-1.025) POC Urine Protein Conf (Negative) Urine Ketones (NEGATIVE) Urine Nitrite (NEGATIVE) Urine Bilirubin (NEGATIVE) Urine Urobilinogen (0-1) mg/dL Urine Leukocytes (NEGATIVE) Urine WBC (Auto) (0-5) /HPF Urine RBC (Auto) (0-2) /HPF U Epithel Cells (Auto) (FEW) /HPF Urine Bacteria (Auto) (NEGATIVE) /HPF Urine RBC (0-5) Luke/ul Urine Mucus (Auto) (NEGATIVE) /HPF Ur Culture Indicated? Urine Glucose (NEGATIVE) mg/dL Influenza Type A Ag (NEGATIVE) Influenza Type B Ag (NEGATIVE) RSV (PCR) (Negative) SARS-CoV-2 (PCR) (NEGATIVE) - Progress Progress: improved Progress Note: AC[facility] FILLER requested to come to our ED room 7 for toco monitoring 03/20/22 02:36 Patient reassessed. Vitals normal. Patient tolerating p.o. Patient feels much better. [place] monitoring within normal limits. COVID influenza RSV negative. UA negative for UTI. No indication for further work-up. Patient resting comfortably. Will discharge home. Patient agrees to follow-up with primary care doctor within 48 hours for evaluation. Portions of this note were created with voice recognition technology. There may be grammatical, spelling, punctuation or sound alike errors 03/20/22 03:35 Potassium replaced orally 03/20/22 03:38 Counseled pt/family regarding: lab results, diagnosis, need for follow-up - Departure Departure Disposition: Home Clinical Impression: Nausea/vomiting in , Diarrhea, Dehydration Condition: Stable Critical Care Time: No Referrals: NARESH LEMUS MD [Primary Care Provider] - Follow up/PCP as directed Additional Instructions: Discharge/Care Plan BLAKE MORENO was seen on 03/20/22 in the Emergency Room. The patient was counseled regarding Diagnosis,Lab results, Imaging studies, need for follow up and when to return to the Emergency Room. Prescriptions given: Discharge Note I have spoken with the patient and/or caregivers. I have explained the patient's condition, diagnosis and treatment plan based on the information available to me at this time. I have answered the patient's and/or caregiver's questions and addressed any concerns. The patient and/or caregivers have as good understanding of the patient's diagnosis, condition and treatment plan as can be expected at this point. The vital signs have been stable. The patient's condition is stable and appropriate for discharge from the emergency department. The patient will pursue further outpatient evaluation with the primary care miranda waggoner or other designated or consulting physician as outlined in the discharge instructions. The patient and/or caregivers are agreeable to this plan of care and follow-up instructions have been explained in detail. The patient and/or caregivers have received these instruction. The patient/and or caregivers are aware that any significant change in condition or worsening of symptoms should prompt an immediate return to this or the closest emergency department or call 911. Prescriptions: Ondansetron ODT 4 MG [Zofran Odt 4 mg] 4 mg PO Q6H PRN PRN #10 tablet PRN Reason: Vomiting
[2022-03-20] MEDS ORDERED: Sodium Chloride 0.9% 1000 ML 1,000 ML IV STA (02:29)
[2022-03-20] MEDS ORDERED: TYLENOL 325 MG PO ONE (02:30)
[2022-03-20] MEDS ORDERED: Zofran 4 MG/2 ML VIAL IV ONE (02:30)
[2022-03-20] MEDS ORDERED: Zofran 4 MG/2 ML VIAL ONE (02:35)
[2022-03-20] MEDS ORDERED: TYLENOL 325 MG ONE (02:36)
[2022-03-20] MEDS ORDERED: Sodium Chloride 0.9% 1000 ML 1,000 ML ONE (02:36)
[2022-03-20 02:41] LABS: Absolute Neutrophil Ct (ANC) 9.81 x10^3/uL (1.4-6.9); Basophil (Absolute #) 0.03 x10^3/uL (0-0.4); Eosinophil % 0.2 % (0.00-5.0); Eosinophil (Absolute #) 0.02 x10^3/uL (0-0.5); Hematocrit 34.7 % (35-47); Hemoglobin 10.9 g/dL (12.0-16.0); Lymphocyte (Absolute #) 0.62 x10^3/uL (1.0-4.6); Lymphocytes % 5.6 % (24.0-44.0); Mean Cell Volume 83.2 fL (78-100); Mean Corpuscular Hemoglobin 26.1 pg (26-32); Mean Corpuscular Hgb Concent. 31.4 g/dL (32-36); Mean Platelet Volume 11.5 fL (7.5-11.0); Monocyte (Absolute #) 0.38 x10^3/uL (0.0-1.3); Monocytes % 3.5 % (0.0-12.0); Neutrophil % 89.3 % (36.0-66.0); Platelet Count 231 x10^3/uL (150-450); Red Blood Count 4.17 x10^6/uL (4.1-5.4); Red Cell Distribution Width 14.5 % (11.5-14.0)
[2022-03-20 02:54] LABS: ALBUMIN 3.9 g/dL (3.5-5.0); ALKALINE PHOSPHATASE 115 U/L (38-126); ANION GAP 14.7 MEQ/L (5-15); BLOOD UREA NITROGEN 5 mg/dL (7-17); CHLORIDE 105 mmol/L (98-107); Calcium 8.5 mg/dL (8.4-10.2); Carbon Dioxide 19 mmol/L (22-30); Creatinine 1 0.38 mg/dL (0.52-1.04); EST GLOMERULAR FILTRATION RATE > 60.0 ML/MIN; Glucose 108 mg/dL (74-106); LIPASE 35 U/L (23-300); Potassium 3.4 mmol/L (3.5-5.1); SGOT/AST 15 U/L (14-36); SGPT/ALT 12 U/L (0-35); SODIUM 135 mmol/L (137-145); Total Protein 7.7 g/dL (6.3-8.2)
[2022-03-20 02:54] LABS: Appearance CLEAR (CLEAR); Bilirubin SMALL (NEGATIVE); Glucose NEGATIVE (NEGATIVE); Ketones >=160 (NEGATIVE); Ph 5.5 (5-6); Protein,Urine Dip 30 (Negative); RBC NEGATIVE Ery/ul (0-5); Specific Gravity >=1.030 (1.005-1.025)
[2022-03-20 02:55] LABS: Dipstick done @ ? MAIN LAB; Nitrite NEGATIVE (NEGATIVE); Urobilinogen 0.2 mg/dL (0-1)
[2022-03-20 02:56] LABS: Bacteria RARE /HPF (NEGATIVE); Epithelial Cells RARE /HPF (FEW); Mucus SLIGHT /HPF (NEGATIVE); Urine Cultured Indicated? NO; WBC 0-2 /HPF (0-5)
[2022-03-20 03:18] LABS: INFLUENZA A NEGATIVE (NEGATIVE); INFLUENZA B NEGATIVE (NEGATIVE); RESPIRATORY SYNCTIAL VIRUS NEGATIVE (Negative); SARS-CoV-2 Xpert Express NEGATIVE (NEGATIVE)
[2022-03-20 03:22] VITALS: BP 125/75
[2022-03-20] MEDS ORDERED: Klor Con PO ONE ×2 (03:38→03:42)
[2022-03-20 03:39] VITALS: O2SAT 98
[2022-03-20 04:03] VITALS: PULSE 97
== END 2022-03-20 04:04 | disposition home or self-care (01) ==
LOC: ED 01:34
DX: O21.2 Late vomiting of pregnancy (principal); Z3A.29 29 weeks gestation of pregnancy; R19.7 Diarrhea, unspecified; E86.0 Dehydration; Z28.310 Unvaccinated for COVID-19
CPT/HCPCS: 0241U; 36000; 36415; 80053; 81015; 83690; 85025; 96360; 96374; 99284; J2405; A9270-GY

== ENCOUNTER 2023-01-07 18:52 | Emergency (ER) | payer OTHER | END 2023-01-07 19:15 | disposition left against medical advice (07) | LOC: ED 18:52 | DX: Z53.21 Procedure and treatment not carried out due to patient leaving prior to being seen by health care provider (principal) ==

== ENCOUNTER 2023-01-08 11:20 | Emergency (ER) | payer OTHER ==
--- NOTE | 2023-01-08 11:30 | ERPHSYRPT ---
- History of Present Illness Time Seen by Provider: 01/08/23 11:30 Source: patient Exam Limitations: no limitations Physician History: This is a 27-year-old white female who accidentally hit her right foot against a bouncy seat prior to arrival. She thinks she broke her right fifth toe. There is bruising and swelling present. There is significant pain. Method of Injury: direct blow Occurred: just prior to arrival Quality: constant, aching, throbbing Severity of Pain-Max: moderate Severity of Pain-Current: moderate Lower Extremities Pain: 5th toe: right (Bruising and swelling) Modifying Factors: Improves With: movement Associated Symptoms: other (Hurts to bear weight) Allergies/Adverse Reactions: No Known Drug Allergies Allergy (Verified 01/08/23 11:31) Hx Tetanus, Diphtheria Vaccination/Date Given: Yes Hx Influenza Vaccination/Date Given: No Hx Pneumococcal Vaccination/Date Given: No Travel Risk - International Travel Have you traveled outside of the country in past 3 weeks: No - Coronavirus Screening Are you exhibiting any of the following symptoms?: No Close contact with a COVID-19 positive Pt in past 14-21 Days: No - Vaccine Status Have you recieved a Covid-19 vaccination: No - Review of Systems Constitutional: No Symptoms Eyes: No Symptoms Ears, Nose, & Throat: No Symptoms Respiratory: No Symptoms Cardiac: No Symptoms Abdominal/Gastrointestinal: No Symptoms Genitourinary Symptoms: No Symptoms Musculoskeletal: Injury (Right fifth toe) Skin: No Symptoms Neurological: No Symptoms Psychological: No Symptoms Endocrine: No Symptoms Hematologic/Lymphatic: No Symptoms Immunological/Allergic: No Symptoms All Other Systems: Reviewed and Negative - Past Medical History Pertinent Past Medical History: Yes Neurological History: No Pertinent History ENT History: No Pertinent History Cardiac History: No Pertinent History Respiratory History: No Pertinent History Endocrine Medical History: No Pertinent History Musculoskeletal History: No Pertinent History GI Medical History: No Pertinent History History: No Pertinent History Psycho-Social History: Anxiety, Depression Female Reproductive Disorders: No Pertinent History - Past Surgical History Past Surgical History: Yes Neuro Surgical History: No Pertinent History Cardiac: No Pertinent History Respiratory: No Pertinent History Gastrointestinal: No Pertinent History Genitourinary: No Pertinent History Musculoskeletal: No Pertinent History Female Surgical History: Section Other Surgical History: C section - Social History Smoking Status: Never smoker Exposure to second hand smoke: No Drug Use: none Patient Lives Alone: No - Nursing Vital Signs Nursing Vital Signs: Initial Vital Signs Temperature 97.9 F 01/08/23 11:26 Pulse Rate 72 01/08/23 11:26 Respiratory Rate 18 01/08/23 11:26 O2 Sat by Pulse Oximetry 98 01/08/23 11:26 Pain Scale Pain Intensity 4 - Physical Exam General Appearance: no apparent distress, alert, anxiety Eyes, Ears, Nose, Throat Exam: normal ENT inspection, moist mucous membranes Neck Exam: normal inspection, non-tender, supple, full range of motion Cardiovascular/Respiratory Exam: chest non-tender, no respiratory distress Gastrointestinal/Abdominal Exam: non-tender Back Exam: normal inspection, normal range of motion, No CVA tenderness, No ve rtebral tenderness Hips Exam: bilateral: non-tender, normal inspection, normal range of motion, no evidence of injury Legs Exam: bilateral leg: non-tender, normal inspection, normal range of motion, no evidence of injury Knees Exam: bilateral knee: non-tender, normal inspection, normal range of motion, no evidence of injury Ankle Exam: bilateral ankle: non-tender, normal inspection, normal range of motion, no evidence of injury Foot Exam: right foot: bone tenderness (Right fifth toe), ecchymosis (Right fifth toe), soft tissue tenderness (Right fifth toe), left foot: non-tender, normal inspection, normal range of motion, no evidence of injury Neuro/Tendon Exam: normal sensation, normal motor functions, normal tendon functions, responds to pain, no evidence tendon injury Mental Status Exam: alert, oriented x 3, cooperative SpO2 Interpretation: normal O2 Delivery: Room Air - Course Nursing assessment & vital signs reviewed: Yes Ordered Tests: Active Orders 24 hr Category Date Time Status Splint STAT Care 01/08/23 12:11 Ordered FOOT (MINIMUM 3 VIEWS) Stat Exams 01/08/23 11:30 Taken - Progress Progress: unchanged Progress Note: 01/08/23 11:46 This patient's medical issue is 1 of low complexity. The level of complexity and the work-up performed is based on review of the patient's past medical history, review the patient's medication list, review of the patient's drug allergy list, history of present illness and physical findings on examination. The work-up in this patient includes x-ray of the right foot. 01/08/23 12:12 X-ray right foot was interpreted by me. There is a nondisplaced fracture right fifth proximal phalanx 01/08/23 12:15 Patient drove herself to the emergency department. Patient is not breast- feeding. Counseled pt/family regarding: diagnosis, need for follow-up, rad results Medical Desision Making - Diagnostic Testing Diagnostic test were ordered, analyzed, and reviewed by me: Yes Radiological Interpretation: Interpreted by me, Teleradiologist Report - Risk of complications The pt has a mod risk of morbidity or mortality based on: Need for prescription drug management - Departure Departure Disposition: Home Clinical Impression: Fracture of fifth toe, right, closed Condition: Stable Critical Care Time: No Referrals: NARESH LEMUS MD [Primary Care Provider] - Follow up/PCP as directed Additional Instructions: Ice bath/pack to tender swollen area 3 times a day for next 48 hours. Follow-up with Dr. Mcneal, podiatry, and his office at scheduled appointment time. Use ibuprofen 600 mg orally 3 times a day with food for the next 5 days. In addition, take your medication as prescribed. Prescriptions: Oxycodone HCl/Acetaminophen [Percocet 5-325 mg Tablet] 1 each PO Q8H PRN PRN #6 tablet MDD 3 PRN Reason: Moderate To Severe Pain
[2023-01-08 11:31] VITALS: PULSE 72; TEMP 97.9; O2SAT 98
--- NOTE | 2023-01-08 12:13 | XRAY ---
Indication: Fifth toe pain and swelling following injury. Comparison: None 3 nonweightbearing views right foot demonstrates nondisplaced non-angulated fracture shaft 5th proximal phalanx with soft tissue swelling. No other bony, articular, or soft tissue abnormalities.
[2023-01-08 12:41] VITALS: RESP 17
== END 2023-01-08 12:41 | disposition home or self-care (01) ==
LOC: ED 11:20
DX: S92.514A Nondisplaced fracture of proximal phalanx of right lesser toe(s), initial encounter for closed fracture (principal); W22.09XA Striking against other stationary object, initial encounter; Z79.891 Long term (current) use of opiate analgesic; Z28.310 Unvaccinated for COVID-19
CPT/HCPCS: 73630; 99283